=== PATIENT | female | born 1955 | race Caucasian/White ===

== ENCOUNTER 2022-12-25 21:41 | Inpatient (IN) | payer MEDICARE, OTHER, SELFPAY ==
[2022-12-25] MEDS ORDERED: Ondansetron PF 4 MG/2 ML Vial IVP PRN (22:50)
[2022-12-25] MEDS ORDERED: Acetaminophen 650 MG Suppository PR PRN (22:50)
[2022-12-25] MEDS ORDERED: Acetaminophen 325 MG TAB PO PRN (22:50)
[2022-12-25] MEDS ORDERED: Ondansetron ODT 4 MG TAB PO PRN (22:50)
[2022-12-26 00:09] LABS: Troponin I 1.402 ng/mL (< 0.028)
[2022-12-26] MEDS ORDERED: Morphine 4 MG/ML VIAL SLOW IVP PRN (02:17)
[2022-12-26] MEDS: Nitroglycerin 0.4 MG TAB (25 Tab Bottle) SL PRN ×2 (02:39→02:55)
[2022-12-26 04:53] LABS: #Basophils 0.1 thou/uL (0.0-0.2); #Monocytes 0.5 thou/uL (0.11-0.59); #Neutrophils 6.9 thou/uL (1.40-6.50); %Basophils 1.1 % (0.0-1.0); %Eosinophils 0.1 % (0.0-10.0); %Lymphocytes 18.6 % (21.0-51.0); %Monocytes 5.6 % (0.0-10.0); %Neutrophils 74.4 % (42.0-75.0); Hematocrit 44.5 % (36.0-47.0); Hemoglobin 14.2 g/dL (12.0-16.0); Mean Corpuscular HGB CONC 31.9 g/dL (32.0-36.0); Mean Corpuscular Hemoglobin 29.2 pg (27.0-31.0); Mean Corpuscular Volume 91.6 fl (78.0-98.0); Mean Platelet Volume 11.5 fL (7.4-10.4); Platelet Count 187 10x3/uL (130-400); RBC Distribution Width 12.7 % (11.5-14.5); Red Blood Cell (RBC) Count 4.86 mill/uL (4.20-5.40); White Blood Cell (WBC) Count 9.3 10x3/uL (4.8-10.8)
[2022-12-26 05:03] LABS: Hemoglobin A1c 5.8 % (4.0-6.0)
[2022-12-26 05:17] LABS: Anion Gap 13 mmol/L (10-20); BUN (Urea Nitrogen) 6 mg/dL (9.8-20.1); Calc. Creatinine Clearance 82 mL/min (70-130); Calcium 8.5 mg/dL (7.8-10.44); Carbon Dioxide 23 mmol/L (23-31); Cardiac Risk 4.1 (Less than 4.5); Chloride 102 mmol/L (98-107); Cholesterol 143 mg/dl (< 200 Desired); Estimated GFR 98; Glucose 122 mg/dL (80-115); HDL Cholesterol 35 mg/dL (>60 Neg Risk); LDL Cholesterol, Calculated 88 mg/dL; Potassium 4.4 mmol/L (3.5-5.1); Sodium 134 mmol/L (136-145); Triglycerides 102 mg/dL (Less than 150)
[2022-12-26] MEDS ORDERED: FLU VACC QS2023(65UP)/MF59C/PF 60 MCG/0.5 ML SYRINGE IM ONE (09:00)
[2022-12-26] MEDS: Aspirin Chewable 81 MG TAB PO SCH (09:56)
[2022-12-26] MEDS ORDERED: Ipratropium/Albuterol 3 ML NEB NEB PRN (11:11)
[2022-12-26] MEDS ORDERED: Iopamidol 370 76% 100 ML VIAL ONE (12:58)
[2022-12-26] MEDS ORDERED: Communication Order-Pharmacy FS SCH (14:45)
[2022-12-26] MEDS: Sodium Chloride 0.9% 1,000 ML IV SCH ×2 (15:19→23:45)
[2022-12-26] MEDS: Atorvastatin Calcium 40 MG TAB PO SCH (20:09)
[2022-12-27] MEDS: Sodium Chloride 0.9% 1,000 ML IV SCH ×2 (01:09→05:38)
[2022-12-27 05:13] LABS: Anion Gap 13 mmol/L (10-20); BUN (Urea Nitrogen) 7 mg/dL (9.8-20.1); Calc. Creatinine Clearance 96 mL/min (70-130); Calcium 9.1 mg/dL (7.8-10.44); Carbon Dioxide 26 mmol/L (23-31); Chloride 103 mmol/L (98-107); Estimated GFR 102; Glucose 94 mg/dL (80-115); Potassium 3.9 mmol/L (3.5-5.1); Sodium 138 mmol/L (136-145)
[2022-12-27] MEDS ORDERED: Lidocaine 1% (PF) 30 ML VIAL ONE ×2 (06:41→10:40)
[2022-12-27] MEDS ORDERED: Heparin 10,000 UNITS/ 10 ML VIAL ONE ×2 (06:41→10:40)
[2022-12-27] MEDS: Aspirin Chewable 81 MG TAB PO SCH (07:06)
[2022-12-27] MEDS ORDERED: Adenosine 6 MG/2 ML VIAL ONE (10:40)
[2022-12-27] MEDS ORDERED: Iopamidol 370 76% 100 ML VIAL ONE (10:41)
[2022-12-27] MEDS ORDERED: Nitroglycerin 50 MG/250 ML BOT 0 ML ONE (10:41)
[2022-12-27] MEDS ORDERED: fentaNYL 50 mcg/mL 1 mL Vial ONE (11:57)
[2022-12-27] MEDS ORDERED: Midazolam HCl 2 mg/2 ml Vial ONE (11:57)
[2022-12-27] MEDS ORDERED: hydrALAZINE 20 MG/ML VIAL ONE (12:18)
[2022-12-27] MEDS ORDERED: Acetaminophen/Codeine 30-300mg Tablet PO PRN (14:24)
[2022-12-27] MEDS ORDERED: Sodium Chloride 0.9% 200 ML IV PRN (14:24)
[2022-12-27] MEDS ORDERED: Sodium Chloride 0.9% 500 ML IV SCH (14:30)
[2022-12-27] MEDS ORDERED: [UNRECOGNIZED DRUG - OTHER] FS SCH (17:44)
[2022-12-27] MEDS ORDERED: Guaifenesin DM 100-10/5 ML UDCUP PO PRN (17:50)
[2022-12-27] MEDS: Atorvastatin Calcium 40 MG TAB PO SCH (20:16)
[2022-12-28] MEDS: Losartan 25 MG TAB PO SCH (08:28)
[2022-12-28] MEDS: Aspirin Chewable 81 MG TAB PO SCH (08:30)
[2022-12-28] MEDS: Atorvastatin Calcium 40 MG TAB PO SCH (21:29)
[2022-12-29] MEDS: Losartan 25 MG TAB PO SCH (08:50)
[2022-12-29] MEDS: Aspirin Chewable 81 MG TAB PO SCH (08:53)
[2022-12-29] MEDS: Atorvastatin Calcium 40 MG TAB PO SCH (20:50)
[2022-12-30] MEDS: Losartan 25 MG TAB PO SCH (05:04)
[2022-12-30] MEDS ORDERED: Albumin 5% 500 ML ONE (06:17)
[2022-12-30] MEDS ORDERED: Heparin 10,000 UNITS/1 ML VIAL 30,000 UNITS in Sodium Chloride 0.9% 1,000 ML FS SCH (06:45)
[2022-12-30] MEDS ORDERED: Lidocaine 2% PF 5 ML VIAL ONE (06:50)
[2022-12-30] MEDS ORDERED: Vecuronium 10 MG VIAL ONE ×2 (06:50→07:42)
[2022-12-30] MEDS ORDERED: fentaNYL PF 100 MCG/2 ML SYRINGE ONE (06:51)
[2022-12-30] MEDS ORDERED: Midazolam HCl 2 mg/2 ml Vial ONE (06:51)
[2022-12-30] MEDS ORDERED: PROPOFOL 20 ML ONE (06:51)
[2022-12-30] MEDS ORDERED: PHENYLEPHRINE-NS 100 MCG/ML 10 ML SYRINGE ONE (06:54)
[2022-12-30] MEDS ORDERED: Dexmedetomidine 200 MCG/2 ML VIAL ONE (06:58)
[2022-12-30] MEDS ORDERED: Ondansetron ODT 4 MG TAB ONE (07:15)
[2022-12-30] MEDS ORDERED: Heparin 5,000 UNITS/ML VIAL ONE ×2 (07:15→07:42)
[2022-12-30] MEDS ORDERED: CEFAZOLIN 2 GM VIAL ONE (07:24)
[2022-12-30] MEDS ORDERED: Sodium Chloride 0.9% 100 ML ONE (07:25)
[2022-12-30] MEDS ORDERED: Mannitol 12.5 GM/50 ML ONE (07:42)
[2022-12-30] MEDS ORDERED: Potassium Chloride 60 MEQ/30 ML VIAL ONE (07:42)
[2022-12-30] MEDS ORDERED: Vancomycin 1 GM VIAL ONE (07:42)
[2022-12-30] MEDS ORDERED: NEOSTIGMINE 3 MG/3 ML SYR 3 MG/3 ML SYRINGE ONE (07:42)
[2022-12-30] MEDS ORDERED: PROPOFOL 200 MG/20 ML VIAL ONE (07:42)
[2022-12-30] MEDS ORDERED: Lidocaine 2% PF 100 mg/5 ml Syringe ONE (07:42)
[2022-12-30] MEDS ORDERED: Norepinephrine 4 MG/4 ML VIAL ONE (07:42)
[2022-12-30] MEDS ORDERED: Protamine Sulfate 250 MG/25 ML VIAL ONE (07:42)
[2022-12-30] MEDS ORDERED: Calcium Chloride 1 GM/10 ML Abboject SYRINGE ONE (07:42)
[2022-12-30] MEDS ORDERED: Thrombin 5000 UNITS/5 ML VIAL ONE (07:42)
[2022-12-30] MEDS ORDERED: Papaverine 60 MG/2 ML VIAL ONE (07:42)
[2022-12-30] MEDS ORDERED: Lidocaine 1% PF 5 ML VIAL ONE (07:42)
[2022-12-30] MEDS ORDERED: Aminocaproic Acid 5 GM/20 ML VIAL ONE (07:42)
[2022-12-30] MEDS ORDERED: Sodium Bicarb 50 MEQ/50 ML VIAL ONE (07:42)
[2022-12-30] MEDS ORDERED: Glycopyrrolate 0.2 MG/ML 5 ML SYRINGE ONE (07:42)
[2022-12-30] MEDS ORDERED: Ondansetron PF 4 MG/2 ML Vial ONE ×2 (07:42→10:31)
[2022-12-30] MEDS ORDERED: Esmolol 100 MG/10 ML VIAL ONE (07:42)
[2022-12-30] MEDS ORDERED: Dexamethasone 20 MG/5 ML VIAL ONE (07:42)
[2022-12-30] MEDS ORDERED: Heparin 30,000 units/30 ml VIAL ONE (07:42)
[2022-12-30] MEDS ORDERED: Magnesium 5 GM/10 ML VIAL ONE (07:42)
[2022-12-30] MEDS ORDERED: Cardioplegic Soln 1,000 ML BAG ONE (07:42)
[2022-12-30] MEDS ORDERED: Milrinone 10 MG/10 ML VIAL ONE (08:12)
[2022-12-30] MEDS ORDERED: Hetastarch 6% 500 ML 500 ML IVPB PRN (10:54)
[2022-12-30] MEDS ORDERED: Ondansetron PF 4 MG/2 ML Vial IVP PRN (10:54)
[2022-12-30] MEDS ORDERED: hydrALAZINE 20 MG/ML VIAL SLOW IVP PRN (10:54)
[2022-12-30] MEDS ORDERED: Bisacodyl 5 MG TAB PO PRN (10:54)
[2022-12-30] MEDS ORDERED: NOREPINEPHRINE 8 MG/250 ML-D5W 250 ML IVPB PRN (10:54)
[2022-12-30] MEDS ORDERED: Nitroglycerin 50 MG/250 ML BOT 250 ML IVPB PRN (10:54)
[2022-12-30] MEDS ORDERED: Post-Op Insulin Drip Protocol IVPB ONE (10:54)
[2022-12-30] MEDS ORDERED: DOPamine 400 MG/D5W 250 ML 250 ML IVPB PRN (10:54)
[2022-12-30] MEDS ORDERED: fentaNYL 50 mcg/mL 1 mL Vial SLOW IVP PRN ×2 (10:54)
[2022-12-30] MEDS ORDERED: Mag-Al 1200 mg/1200 mg/30 ML UDCUP PO PRN (10:54)
[2022-12-30] MEDS ORDERED: Potassium Chloride 20 MEQ/100 ML PREMIX BAG IVPB PRN (10:54)
[2022-12-30] MEDS ORDERED: Bisacodyl 10 MG SUPP PR PRN (10:54)
[2022-12-30] MEDS ORDERED: Ipratropium/Albuterol 3 ML NEB NEB PRN (10:54)
[2022-12-30] MEDS ORDERED: Morphine 2 MG/ML VIAL SLOW IVP PRN (10:54)
[2022-12-30] MEDS ORDERED: niCARdipine 25 MG in Sodium Chloride 0.9% 250 ML 250 ML IVPB PRN (10:54)
[2022-12-30] MEDS ORDERED: Guaifenesin DM 100-10/5 ML UDCUP PO PRN (10:54)
[2022-12-30] MEDS ORDERED: Ipratropium/Albuterol 3 ML NEB ONE (11:09)
[2022-12-30] MEDS ORDERED: fentaNYL 50 mcg/mL 1 mL Vial ONE (11:14)
[2022-12-30] MEDS ORDERED: Dextrose 5% in Water 1,000 ML IV PRN (11:15)
[2022-12-30] MEDS ORDERED: Dextrose 50% Abboject 50 ML SYRINGE SLOW IVP PRN (11:15)
[2022-12-30] MEDS ORDERED: HUMULIN R 100 UNITS in Sodium Chloride 0.9% 100 ML IVPB SCH (11:15)
[2022-12-30] MEDS ORDERED: Glucagon 1 MG/ML KIT SC PRN (11:15)
[2022-12-30 11:30] LABS: #Basophils 0.2 thou/uL (0.0-0.2); #Eosinphils 0.2 thou/uL (0.0-0.7); #Neutrophils 20.8 thou/uL (1.40-6.50); %Basophils 0.7 % (0.0-1.0); %Eosinophils 0.9 % (0.0-10.0); %Monocytes 4.1 % (0.0-10.0); %Neutrophils 84.6 % (42.0-75.0); Hematocrit 39.7 % (36.0-47.0); Hemoglobin 12.9 g/dL (12.0-16.0); Mean Corpuscular HGB CONC 32.5 g/dL (32.0-36.0); Mean Corpuscular Hemoglobin 30.1 pg (27.0-31.0); Mean Corpuscular Volume 92.8 fl (78.0-98.0); Mean Platelet Volume 10.9 fL (7.4-10.4); Platelet Count 187 10x3/uL (130-400); RBC Distribution Width 12.7 % (11.5-14.5); Red Blood Cell (RBC) Count 4.28 mill/uL (4.20-5.40); White Blood Cell (WBC) Count 24.6 10x3/uL (4.8-10.8)
[2022-12-30] MEDS: Lactated Ringer's 1,000 ML IV SCH (11:30)
[2022-12-30 11:55] LABS: Anion Gap 12 mmol/L (10-20); BUN (Urea Nitrogen) 11 mg/dL (9.8-20.1); Calc. Creatinine Clearance 87 mL/min (70-130); Calcium 7.7 mg/dL (7.8-10.44); Carbon Dioxide 24 mmol/L (23-31); Chloride 110 mmol/L (98-107); Estimated GFR 100; Glucose 151 mg/dL (80-115); Sodium 142 mmol/L (136-145)
[2022-12-30] MEDS: Insulin Regular 300 UNITS/3 ML VIAL SC PRN ×3 (12:04→20:42)
[2022-12-30 12:17] LABS: INR-International Normal Ratio 1.4; Prothrombin Time 17.9 sec (12.0-14.7)
[2022-12-30] MEDS: Ipratropium/Albuterol 3 ML NEB NEB SCH ×3 (13:43→23:52)
[2022-12-30] MEDS: CEFAZOLIN 2 GM in Sodium Chloride 0.9% 100 ML IVPB SCH (14:50)
[2022-12-30] MEDS: HYDROcodone/Acetaminophen 5/325 mg Tablet PO PRN ×2 (15:31→20:18)
[2022-12-30 16:57] LABS: Hematocrit 33.1 % (36.0-47.0); Hemoglobin 10.8 g/dL (12.0-16.0)
[2022-12-30 17:25] LABS: Potassium 4.1 mmol/L (3.5-5.1)
[2022-12-30] MEDS: Famotidine/PF 20 mg/2ml Vial SLOW IVP SCH (20:17)
[2022-12-30] MEDS: Atorvastatin Calcium 20 MG TAB PO SCH (20:18)
[2022-12-31] MEDS ORDERED: Sodium Chloride 0.9% 100 ML ONE (00:03)
[2022-12-31] MEDS: CEFAZOLIN 2 GM in Sodium Chloride 0.9% 100 ML IVPB SCH ×2 (00:08→06:10)
[2022-12-31] MEDS: Lactated Ringer's 1,000 ML IV SCH ×2 (00:17→09:40)
[2022-12-31] MEDS: Insulin Regular 300 UNITS/3 ML VIAL SC PRN ×3 (00:20→12:33)
[2022-12-31] MEDS: HYDROcodone/Acetaminophen 5/325 mg Tablet PO PRN ×2 (03:13→12:29)
[2022-12-31] MEDS: Acetaminophen 325 MG TAB PO PRN (04:46)
[2022-12-31 05:05] LABS: #Monocytes 1.6 thou/uL (0.11-0.59); #Neutrophils 12.4 thou/uL (1.40-6.50); %Basophils 0.2 % (0.0-1.0); %Lymphocytes 12.9 % (21.0-51.0); %Monocytes 9.7 % (0.0-10.0); %Neutrophils 76.8 % (42.0-75.0); Hematocrit 30.9 % (36.0-47.0); Hemoglobin 9.9 g/dL (12.0-16.0); Mean Corpuscular Hemoglobin 29.6 pg (27.0-31.0); Mean Corpuscular Volume 92.5 fl (78.0-98.0); Mean Platelet Volume 11.1 fL (7.4-10.4); Platelet Count 187 10x3/uL (130-400); Red Blood Cell (RBC) Count 3.34 mill/uL (4.20-5.40); White Blood Cell (WBC) Count 16.2 10x3/uL (4.8-10.8)
[2022-12-31 05:29] LABS: Anion Gap 11 mmol/L (10-20); BUN (Urea Nitrogen) 10 mg/dL (9.8-20.1); Calc. Creatinine Clearance 102 mL/min (70-130); Calcium 8.1 mg/dL (7.8-10.44); Carbon Dioxide 25 mmol/L (23-31); Chloride 106 mmol/L (98-107); Estimated GFR 99; Glucose 128 mg/dL (80-115); Potassium 4.1 mmol/L (3.5-5.1); Sodium 138 mmol/L (136-145)
[2022-12-31] MEDS: Ipratropium/Albuterol 3 ML NEB NEB SCH ×3 (07:57→18:26)
[2022-12-31] MEDS: Magnesium 2 GM/50 ML(in water) 2 GM in Premix 1 BAG IVPB SCH (08:47)
[2022-12-31] MEDS: Aspirin Chewable 81 MG TAB PO SCH (08:47)
[2022-12-31] MEDS: Famotidine/PF 20 mg/2ml Vial SLOW IVP SCH ×2 (08:48→21:46)
[2022-12-31] MEDS ORDERED: Insulin Glargine 30 UNITS/0.3 ML VIAL SC PRN (11:05)
[2022-12-31 15:26] LABS: Hematocrit 28.6 % (36.0-47.0); Hemoglobin 9.5 g/dL (12.0-16.0); Platelet Count 140 10x3/uL (130-400)
[2022-12-31] MEDS: Ketorolac Tromethamine 30 MG/ML VIAL IVP SCH ×2 (16:10→23:59)
[2022-12-31] MEDS: Atorvastatin Calcium 20 MG TAB PO SCH (21:46)
[2023-01-01] MEDS: Ipratropium/Albuterol 3 ML NEB NEB SCH ×4 (00:14→18:07)
[2023-01-01] MEDS: Amiodarone 450 MG, Admixture Fee 1 EACH in Dextrose 5% in Water 250 ML IVPB SCH ×2 (04:15→10:55)
[2023-01-01 05:03] LABS: #Monocytes 0.9 thou/uL (0.11-0.59); %Basophils 0.4 % (0.0-1.0); %Eosinophils 0.1 % (0.0-10.0); %Lymphocytes 22.8 % (21.0-51.0); %Monocytes 9.6 % (0.0-10.0); %Neutrophils 66.4 % (42.0-75.0); Hematocrit 28.2 % (36.0-47.0); Hemoglobin 9.2 g/dL (12.0-16.0); Mean Corpuscular HGB CONC 32.6 g/dL (32.0-36.0); Mean Corpuscular Hemoglobin 29.6 pg (27.0-31.0); Mean Corpuscular Volume 90.7 fl (78.0-98.0); Mean Platelet Volume 11.3 fL (7.4-10.4); Platelet Count 143 10x3/uL (130-400); RBC Distribution Width 13.1 % (11.5-14.5); Red Blood Cell (RBC) Count 3.11 mill/uL (4.20-5.40)
[2023-01-01 05:24] LABS: Anion Gap 11 mmol/L (10-20); BUN (Urea Nitrogen) 10 mg/dL (9.8-20.1); Calc. Creatinine Clearance 102 mL/min (70-130); Calcium 8.3 mg/dL (7.8-10.44); Carbon Dioxide 25 mmol/L (23-31); Chloride 105 mmol/L (98-107); Estimated GFR 100; Glucose 104 mg/dL (80-115); Potassium 4.2 mmol/L (3.5-5.1); Sodium 137 mmol/L (136-145)
[2023-01-01] MEDS: Ketorolac Tromethamine 30 MG/ML VIAL IVP SCH ×2 (08:09→16:06)
[2023-01-01] MEDS: Magnesium 2 GM/50 ML(in water) 2 GM in Premix 1 BAG IVPB SCH (08:09)
[2023-01-01] MEDS: Aspirin Chewable 81 MG TAB PO SCH (08:09)
[2023-01-01] MEDS: Famotidine/PF 20 mg/2ml Vial SLOW IVP SCH ×2 (08:09→20:06)
[2023-01-01] MEDS: Lactated Ringer's 1,000 ML IV SCH (08:20)
[2023-01-01] MEDS ORDERED: Furosemide 40 MG TAB PO SCH (17:30)
[2023-01-01] MEDS: Atorvastatin Calcium 20 MG TAB PO SCH (20:07)
[2023-01-02] MEDS: Ipratropium/Albuterol 3 ML NEB NEB SCH ×5 (00:08→23:00)
[2023-01-02] MEDS: HYDROcodone/Acetaminophen 5/325 mg Tablet PO PRN (01:07)
[2023-01-02] MEDS: Amiodarone 450 MG, Admixture Fee 1 EACH in Dextrose 5% in Water 250 ML IVPB SCH (01:07)
[2023-01-02] MEDS: Ketorolac Tromethamine 30 MG/ML VIAL IVP SCH ×4 (01:15→23:25)
[2023-01-02 04:28] LABS: #Basophils 0.1 thou/uL (0.0-0.2); #Eosinphils 0.1 thou/uL (0.0-0.7); #Monocytes 1.1 thou/uL (0.11-0.59); %Eosinophils 1.4 % (0.0-10.0); %Lymphocytes 23.5 % (21.0-51.0); %Monocytes 11.6 % (0.0-10.0); Hematocrit 29.7 % (36.0-47.0); Hemoglobin 9.6 g/dL (12.0-16.0); Mean Corpuscular HGB CONC 32.3 g/dL (32.0-36.0); Mean Corpuscular Hemoglobin 29.9 pg (27.0-31.0); Mean Corpuscular Volume 92.5 fl (78.0-98.0); Mean Platelet Volume 11.1 fL (7.4-10.4); Platelet Count 167 10x3/uL (130-400); RBC Distribution Width 13.1 % (11.5-14.5); Red Blood Cell (RBC) Count 3.21 mill/uL (4.20-5.40); White Blood Cell (WBC) Count 9.7 10x3/uL (4.8-10.8)
[2023-01-02 04:49] LABS: Anion Gap 12 mmol/L (10-20); BUN (Urea Nitrogen) 14 mg/dL (9.8-20.1); Calc. Creatinine Clearance 87 mL/min (70-130); Calcium 8.1 mg/dL (7.8-10.44); Carbon Dioxide 26 mmol/L (23-31); Chloride 104 mmol/L (98-107); Estimated GFR 96; Glucose 123 mg/dL (80-115); Sodium 138 mmol/L (136-145)
[2023-01-02 07:38] VITALS: BMI 26.5
[2023-01-02] MEDS: Furosemide 40 MG TAB PO SCH (08:43)
[2023-01-02] MEDS: Famotidine/PF 20 mg/2ml Vial SLOW IVP SCH (08:44)
[2023-01-02] MEDS: Amiodarone 200 MG TAB PO SCH ×2 (08:44→20:35)
[2023-01-02] MEDS: Aspirin Chewable 81 MG TAB PO SCH (08:44)
[2023-01-02] MEDS ORDERED: Milk Of Magnesia 30 ML UDCUP PO PRN (09:33)
[2023-01-02] MEDS ORDERED: Mineral Oil ENEMA PR PRN (09:33)
[2023-01-02] MEDS ORDERED: Bisacodyl 10 MG SUPP PR PRN (09:33)
[2023-01-02] MEDS ORDERED: Artificial Tear Sol 15 ML BOT EA EYE PRN (09:33)
[2023-01-02] MEDS ORDERED: Zolpidem Tartrate 5 MG TAB PO PRN (09:33)
[2023-01-02] MEDS ORDERED: Nitroglycerin 0.4 MG TAB (25 Tab Bottle) SL PRN (09:33)
[2023-01-02] MEDS ORDERED: Bisacodyl 5 MG TAB PO PRN (09:33)
[2023-01-02] MEDS ORDERED: diphenhydrAMINE 25 MG CAP PO PRN (09:33)
[2023-01-02] MEDS ORDERED: Mag-Al 1200 mg/1200 mg/30 ML UDCUP PO PRN (09:33)
[2023-01-02] MEDS: Atorvastatin Calcium 20 MG TAB PO SCH (20:35)
[2023-01-02] MEDS: Famotidine 20 MG TAB PO SCH (20:35)
[2023-01-03] MEDS: Ipratropium/Albuterol 3 ML NEB NEB SCH ×3 (06:45→21:46)
[2023-01-03] MEDS: Amiodarone 200 MG TAB PO SCH ×2 (09:21→21:32)
[2023-01-03] MEDS: Famotidine 20 MG TAB PO SCH ×2 (09:21→21:32)
[2023-01-03] MEDS: Aspirin Chewable 81 MG TAB PO SCH (09:22)
[2023-01-03] MEDS: Ketorolac Tromethamine 30 MG/ML VIAL IVP SCH ×2 (09:22→17:37)
[2023-01-03] MEDS: Furosemide 40 MG TAB PO SCH (09:22)
[2023-01-03] MEDS: Atorvastatin Calcium 20 MG TAB PO SCH (21:32)
[2023-01-04] MEDS: Ipratropium/Albuterol 3 ML NEB NEB SCH ×5 (01:05→22:33)
[2023-01-04] MEDS: Ketorolac Tromethamine 30 MG/ML VIAL IVP SCH ×3 (01:20→16:02)
[2023-01-04] MEDS: Aspirin Chewable 81 MG TAB PO SCH (08:26)
[2023-01-04] MEDS: Furosemide 40 MG TAB PO SCH (08:27)
[2023-01-04] MEDS: Famotidine 20 MG TAB PO SCH ×2 (08:27→21:14)
[2023-01-04] MEDS: Amiodarone 200 MG TAB PO SCH ×2 (08:27→21:14)
[2023-01-04] MEDS: Atorvastatin Calcium 20 MG TAB PO SCH (21:14)
[2023-01-04] MEDS: Guaifenesin DM 100-10/5 ML UDCUP PO PRN (21:15)
[2023-01-04] MEDS: Acetaminophen 325 MG TAB PO PRN (21:19)
[2023-01-05] MEDS: Ketorolac Tromethamine 30 MG/ML VIAL IVP SCH ×3 (02:21→15:17)
[2023-01-05 04:11] LABS: #Basophils 0.1 thou/uL (0.0-0.2); #Eosinphils 0.6 thou/uL (0.0-0.7); #Monocytes 0.9 thou/uL (0.11-0.59); #Neutrophils 5.4 thou/uL (1.40-6.50); %Basophils 0.9 % (0.0-1.0); %Eosinophils 6.6 % (0.0-10.0); %Lymphocytes 22.9 % (21.0-51.0); %Monocytes 10.1 % (0.0-10.0); %Neutrophils 59.1 % (42.0-75.0); Hemoglobin 10.3 g/dL (12.0-16.0); Mean Corpuscular HGB CONC 32.2 g/dL (32.0-36.0); Mean Corpuscular Hemoglobin 29.6 pg (27.0-31.0); Mean Platelet Volume 10.5 fL (7.4-10.4); Platelet Count 302 10x3/uL (130-400); RBC Distribution Width 13.2 % (11.5-14.5); Red Blood Cell (RBC) Count 3.48 mill/uL (4.20-5.40); White Blood Cell (WBC) Count 9.2 10x3/uL (4.8-10.8)
[2023-01-05 04:31] LABS: Anion Gap 12 mmol/L (10-20); BUN (Urea Nitrogen) 10 mg/dL (9.8-20.1); Calc. Creatinine Clearance 96 mL/min (70-130); Calcium 8.3 mg/dL (7.8-10.44); Carbon Dioxide 28 mmol/L (23-31); Chloride 105 mmol/L (98-107); Estimated GFR 100; Glucose 78 mg/dL (80-115); Potassium 3.4 mmol/L (3.5-5.1); Sodium 142 mmol/L (136-145)
[2023-01-05] MEDS: HYDROcodone/Acetaminophen 5/325 mg Tablet PO PRN ×2 (05:58→20:27)
[2023-01-05] MEDS: Ipratropium/Albuterol 3 ML NEB NEB SCH ×3 (08:07→19:02)
[2023-01-05] MEDS: Aspirin Chewable 81 MG TAB PO SCH (08:39)
[2023-01-05] MEDS: Furosemide 40 MG TAB PO SCH (08:39)
[2023-01-05] MEDS: Amiodarone 200 MG TAB PO SCH ×2 (08:40→20:28)
[2023-01-05] MEDS: Famotidine 20 MG TAB PO SCH ×2 (08:40→20:28)
[2023-01-05] MEDS ORDERED: Potassium Chloride 20 MEQ TAB PO SCH (13:00)
[2023-01-05] MEDS: Atorvastatin Calcium 20 MG TAB PO SCH (20:28)
[2023-01-05] MEDS: Guaifenesin DM 100-10/5 ML UDCUP PO PRN (20:28)
[2023-01-05] MEDS: Benzonatate 100 MG CAP PO PRN (23:53)
[2023-01-06] MEDS: Ipratropium/Albuterol 3 ML NEB NEB SCH ×4 (00:05→19:14)
[2023-01-06 05:47] LABS: #Basophils 0.1 thou/uL (0.0-0.2); #Eosinphils 0.8 thou/uL (0.0-0.7); #Monocytes 1.3 thou/uL (0.11-0.59); #Neutrophils 9.7 thou/uL (1.40-6.50); %Basophils 0.8 % (0.0-1.0); %Eosinophils 5.8 % (0.0-10.0); %Lymphocytes 16.4 % (21.0-51.0); %Monocytes 8.8 % (0.0-10.0); %Neutrophils 67.7 % (42.0-75.0); Hematocrit 35.6 % (36.0-47.0); Hemoglobin 11.2 g/dL (12.0-16.0); Mean Corpuscular HGB CONC 31.5 g/dL (32.0-36.0); Mean Corpuscular Hemoglobin 29.4 pg (27.0-31.0); Mean Corpuscular Volume 93.4 fl (78.0-98.0); Mean Platelet Volume 12.5 fL (7.4-10.4); Platelet Count 243 10x3/uL (130-400); Red Blood Cell (RBC) Count 3.81 mill/uL (4.20-5.40); White Blood Cell (WBC) Count 14.3 10x3/uL (4.8-10.8)
[2023-01-06 06:25] LABS: Anion Gap 12 mmol/L (10-20); BUN (Urea Nitrogen) 15 mg/dL (9.8-20.1); Calc. Creatinine Clearance 84 mL/min (70-130); Calcium 8.5 mg/dL (7.8-10.44); Carbon Dioxide 27 mmol/L (23-31); Chloride 104 mmol/L (98-107); Estimated GFR 97; Glucose 106 mg/dL (80-115); Sodium 139 mmol/L (136-145)
[2023-01-06] MEDS: HYDROcodone/Acetaminophen 5/325 mg Tablet PO PRN ×2 (08:15→21:09)
[2023-01-06] MEDS: Famotidine 20 MG TAB PO SCH ×2 (08:23→21:09)
[2023-01-06] MEDS: Furosemide 40 MG TAB PO SCH (09:26)
[2023-01-06] MEDS: Amiodarone 200 MG TAB PO SCH ×2 (09:26→21:09)
[2023-01-06] MEDS: Aspirin Chewable 81 MG TAB PO SCH (09:26)
[2023-01-06] MEDS: Losartan 25 MG TAB PO SCH (09:40)
[2023-01-06 14:28] LABS: Actual Bicarbonate (HCO3a) 24.4 mEq/L (22-28); Analyzer IN Cardio OR; Base Excess (BEa) -1.2 mEq/L (-2.0 to +3.0); Calcium, Ionized (arterial) 1.12 mmol/L (1.12-1.30); Carboxyhemoglobin (COHb) 0.9 gm% (0.0-3.0); Hematocrit-ABG 41 % (36.0-47.0); O2 Tension (PaO2), arterial 462.7 mmHg (> 80.0); Potassium - ABG Lab 3.38 mmol/L (3.70-5.30); pH, Arterial 7.362 (7.35-7.45)
[2023-01-06 14:29] LABS: Actual Bicarbonate (HCO3a) 23.8 mEq/L (22-28); Analyzer IN Cardio OR; Base Excess (BEa) -3.6 mEq/L (-2.0 to +3.0); CO2 Tension 52.5 mmHg (35.0-45.0); Calcium, Ionized (arterial) 1.14 mmol/L (1.12-1.30); Carboxyhemoglobin (COHb) 0.3 gm% (0.0-3.0); Hematocrit-ABG 40 % (36.0-47.0); Hemoglobin (Hb) 13.7 g/dL (12.0-16.0); O2 Tension (PaO2), arterial 496.4 mmHg (> 80.0); Potassium - ABG Lab 3.75 mmol/L (3.70-5.30); pH, Arterial 7.274 (7.35-7.45)
[2023-01-06 14:29] LABS: Analyzer IN Cardio OR; Base Excess (BEa) 0.8 mEq/L (-2.0 to +3.0); CO2 Tension 51.6 mmHg (35.0-45.0); Carboxyhemoglobin (COHb) 0.2 gm% (0.0-3.0); Hematocrit-ABG 27 % (36.0-47.0); Hemoglobin (Hb) 9.3 g/dL (12.0-16.0); O2 Tension (PaO2), arterial 398.4 mmHg (> 80.0); Potassium - ABG Lab 3.83 mmol/L (3.70-5.30); pH, Arterial 7.337 (7.35-7.45)
[2023-01-06 14:29] LABS: Actual Bicarbonate (HCO3a) 22.2 mEq/L (22-28); Analyzer IN Cardio OR; Base Excess (BEa) -0.5 mEq/L (-2.0 to +3.0); CO2 Tension 29.9 mmHg (35.0-45.0); Calcium, Ionized (arterial) 0.88 mmol/L (1.12-1.30); Carboxyhemoglobin (COHb) 0.3 gm% (0.0-3.0); Hematocrit-ABG 29 % (36.0-47.0); O2 Tension (PaO2), arterial 357.7 mmHg (> 80.0); Potassium - ABG Lab 3.86 mmol/L (3.70-5.30); pH, Arterial 7.489 (7.35-7.45)
[2023-01-06 14:29] LABS: Actual Bicarbonate (HCO3a) 24.3 mEq/L (22-28); Analyzer IN Cardio OR; Base Excess (BEa) -1.3 mEq/L (-2.0 to +3.0); CO2 Tension 44.5 mmHg (35.0-45.0); Calcium, Ionized (arterial) 1.12 mmol/L (1.12-1.30); Carboxyhemoglobin (COHb) 0.3 gm% (0.0-3.0); Hematocrit-ABG 29 % (36.0-47.0); O2 Tension (PaO2), arterial 313.9 mmHg (> 80.0); Potassium - ABG Lab 4.07 mmol/L (3.70-5.30); pH, Arterial 7.355 (7.35-7.45)
[2023-01-06 14:30] LABS: Puncture Site Arterial Line
[2023-01-06 14:30] LABS: Actual Bicarbonate (HCO3a) 22.7 mEq/L (22-28); Analyzer IN Cardio OR; CO2 Tension 59.9 mmHg (35.0-45.0); Calcium, Ionized (arterial) 1.09 mmol/L (1.12-1.30); Carboxyhemoglobin (COHb) 0.2 gm% (0.0-3.0); Hematocrit-ABG 36 % (36.0-47.0); Hemoglobin (Hb) 12.2 g/dL (12.0-16.0); O2 Tension (PaO2), arterial 210.9 mmHg (> 80.0); Potassium - ABG Lab 3.87 mmol/L (3.70-5.30)
[2023-01-06 14:31] LABS: Puncture Site Arterial Line
[2023-01-06 14:31] LABS: Puncture Site Arterial Line
[2023-01-06 14:31] LABS: Puncture Site Arterial Line
[2023-01-06 14:32] LABS: Puncture Site Arterial Line
[2023-01-06 14:34] LABS: Puncture Site Arterial Line; pH, Arterial 7.196 (7.35-7.45)
[2023-01-06] MEDS: Atorvastatin Calcium 20 MG TAB PO SCH (21:09)
[2023-01-06] MEDS: Benzonatate 100 MG CAP PO PRN (21:09)
[2023-01-07] MEDS: Ipratropium/Albuterol 3 ML NEB NEB SCH ×3 (00:43→12:40)
[2023-01-07 04:08] LABS: #Basophils 0.1 thou/uL (0.0-0.2); #Eosinphils 0.4 thou/uL (0.0-0.7); #Monocytes 1.2 thou/uL (0.11-0.59); %Basophils 0.6 % (0.0-1.0); %Eosinophils 2.5 % (0.0-10.0); %Lymphocytes 11.3 % (21.0-51.0); %Monocytes 7.3 % (0.0-10.0); %Neutrophils 77.6 % (42.0-75.0); Hematocrit 34.7 % (36.0-47.0); Hemoglobin 10.9 g/dL (12.0-16.0); Mean Corpuscular HGB CONC 31.4 g/dL (32.0-36.0); Mean Corpuscular Hemoglobin 29.1 pg (27.0-31.0); Mean Corpuscular Volume 92.8 fl (78.0-98.0); Mean Platelet Volume 10.1 fL (7.4-10.4); Red Blood Cell (RBC) Count 3.74 mill/uL (4.20-5.40); White Blood Cell (WBC) Count 16.8 10x3/uL (4.8-10.8)
[2023-01-07 04:32] LABS: Anion Gap 13 mmol/L (10-20); BUN (Urea Nitrogen) 12 mg/dL (9.8-20.1); Calc. Creatinine Clearance 86 mL/min (70-130); Calcium 8.3 mg/dL (7.8-10.44); Carbon Dioxide 28 mmol/L (23-31); Chloride 102 mmol/L (98-107); Estimated GFR 97; Glucose 100 mg/dL (80-115); Potassium 3.7 mmol/L (3.5-5.1); Sodium 139 mmol/L (136-145)
[2023-01-07 04:41] LABS: Platelet Count 363 10x3/uL (130-400)
[2023-01-07] MEDS: Guaifenesin DM 100-10/5 ML UDCUP PO PRN (05:05)
[2023-01-07] MEDS: Furosemide 40 MG TAB PO SCH (07:52)
[2023-01-07] MEDS: Aspirin Chewable 81 MG TAB PO SCH (07:54)
[2023-01-07] MEDS: Losartan 25 MG TAB PO SCH (07:54)
[2023-01-07] MEDS: Famotidine 20 MG TAB PO SCH (07:54)
[2023-01-07] MEDS: Amiodarone 200 MG TAB PO SCH (07:59)
[2023-01-07] MEDS ORDERED: Amoxicillin/Potassium Clav 500 MG TAB PO SCH (09:00)
[2023-01-07 11:36] LABS: Bacteria/HPF None Seen HPF (None Seen); Bilirubin Negative (Negative); Blood, Urine Negative (Negative); CAUTI Indications for Culture Dysuria,urgency,freq; Clarity Clear (Clear); Glucose, Urine (Dipstick) Normal (Negative); Ketone, Urine Negative (Negative); Leukocyte Negative Leu/uL (Negative); Nitrite Negative (Negative); Protein, Urine (Dipstick) Negative (Neg-Trace); RBC/HPF 0-3 HPF (0-3); Specific Gravity, Urine 1.006 (1.002-1.036); Squamous Epithelial 0-3 HPF (0-3); Urobilinogen Normal mg/dL (Less than 2); WBC/HPF 0-3 HPF (0-3)
[2023-01-07 11:37] LABS: Urine Culture Reflex No No
[2023-01-07 13:11] VITALS: BP 118/56; TEMP 98.5
[2023-01-12] MEDS ORDERED: Amiodarone 200 MG TAB PO SCH (09:00)
== END 2023-01-07 15:20 | disposition home or self-care (01) | DRG 234 ==
LOC: 2NO 22:04 → OBSVTOIN 12-26 08:28 → CCU 12-30 06:38 → 2NO 01-02 12:26
PROVIDERS: ADMIT Student in an Organized Health Care Education/Training Program; ATTEND Internal Medicine
PROC: 4A023N7 Measurement of Cardiac Sampling and Pressure, Left Heart, Percutaneous Approach (ICD-10-PCS; 2022-12-27)
PROC: B2111ZZ Fluoroscopy of Multiple Coronary Arteries using Low Osmolar Contrast (ICD-10-PCS; 2022-12-27)
PROC: B2151ZZ Fluoroscopy of Left Heart using Low Osmolar Contrast (ICD-10-PCS; 2022-12-27)
PROC: 02100Z9 Bypass Coronary Artery, One Artery from Left Internal Mammary, Open Approach (ICD-10-PCS; principal; 2022-12-30)
PROC: 021109W Bypass Coronary Artery, Two Arteries from Aorta with Autologous Venous Tissue, Open Approach (ICD-10-PCS; 2022-12-30)
PROC: 06BQ3ZZ Excision of Left Saphenous Vein, Percutaneous Approach (ICD-10-PCS; 2022-12-30)
PROC: 30233J1 Transfusion of Nonautologous Serum Albumin into Peripheral Vein, Percutaneous Approach (ICD-10-PCS; 2022-12-30)
PROC: 5A1221Z Performance of Cardiac Output, Continuous (ICD-10-PCS; 2022-12-30)
PROC: 02L70CK Occlusion of Left Atrial Appendage with Extraluminal Device, Open Approach (ICD-10-PCS; 2022-12-30)
PROC: 4A133R1 Monitoring of Arterial Saturation, Peripheral, Percutaneous Approach (ICD-10-PCS; 2022-12-30)
DX: I21.4 Non-ST elevation (NSTEMI) myocardial infarction (principal); F17.210 Nicotine dependence, cigarettes, uncomplicated; R91.1 Solitary pulmonary nodule; I25.10 Atherosclerotic heart disease of native coronary artery without angina pectoris; J43.2 Centrilobular emphysema; I48.91 Unspecified atrial fibrillation; E87.6 Hypokalemia; R91.8 Other nonspecific abnormal finding of lung field
CPT/HCPCS: 36415; 36416; 36430; 71045; 71275; 80048; 80061; 81001; 82805; 82947; 83036; 84484; 85025; 85379; 85610; 85730; 86850; 86900; 86901; 90471; 90694; 93005; 93010; 93306; 93458; 93798; 94640; 94760; 96372; 96374; 97139; 99152; A4311; C1713; C1751; C1769; G0008; G0378; J0153; J0282; J0360; J1100; J1642; J1644; J1650; J1815; J1885; J2001; J2150; J2250; J2260; J2270; J2405; J2440; J2704; J2720; J3010; J3370; J3475; J3480; J3490; J7030; J7050; J7070; J7120; J7620; P9045; Q0162; Q9967; S0017; S0028

== ENCOUNTER 2023-01-22 09:50 | Outpatient (CLI) | payer MEDICARE | END 2023-01-22 09:51 | disposition home or self-care (01) | LOC: RAD 09:50 | PROVIDERS: ATTEND Internal Medicine Critical Care Medicine | DX: R06.00 Dyspnea, unspecified (principal); J90 Pleural effusion, not elsewhere classified; R91.8 Other nonspecific abnormal finding of lung field | CPT/HCPCS: 71046 ==

== ENCOUNTER → 2023-04-07 | Day surgery (SDC) | payer MEDICARE ==
[~2023-04-07] MED LIST: FLU VACC QS2023(65UP)/MF59C/PF 60 MCG/0.5 ML SYRINGE IM ONE; Lidocaine 1% w/Epinephrine 1:100K 20 ML VIAL ONE; Midazolam HCl 2 mg/2 ml Vial ONE; fentaNYL 50 mcg/mL 1 mL Vial ONE
[2023-04-07 08:40] LABS: #Basophils 0.1 thou/uL (0.0-0.2); #Eosinphils 0.3 thou/uL (0.0-0.7); #Monocytes 0.5 thou/uL (0.11-0.59); %Eosinophils 3.9 % (0.0-10.0); %Lymphocytes 39.1 % (21.0-51.0); %Monocytes 7.7 % (0.0-10.0); Hematocrit 49.4 % (36.0-47.0); Hemoglobin 15.6 g/dL (12.0-16.0); Mean Corpuscular HGB CONC 31.6 g/dL (32.0-36.0); Mean Corpuscular Hemoglobin 28.2 pg (27.0-31.0); Mean Corpuscular Volume 89.3 fl (78.0-98.0); Mean Platelet Volume 9.8 fL (7.4-10.4); Platelet Count 249 10x3/uL (130-400); RBC Distribution Width 14.1 % (11.5-14.5); Red Blood Cell (RBC) Count 5.53 mill/uL (4.20-5.40); White Blood Cell (WBC) Count 6.5 10x3/uL (4.8-10.8)
[2023-04-07 08:53] LABS: INR-International Normal Ratio 0.9; Prothrombin Time 12.4 sec (12.0-14.7)
[2023-04-07 08:54] LABS: PTT 28.1 sec (22.9-36.1)
[2023-04-07 12:42] VITALS: BMI 24.8
[2023-04-07 13:13] VITALS: BP 164/96; TEMP 98.5
== END ==
LOC: CT 08:03
PROVIDERS: ATTEND Internal Medicine Critical Care Medicine
PROC: 0BBG3ZX Excision of Left Upper Lung Lobe, Percutaneous Approach, Diagnostic (ICD-10-PCS; principal; 2023-04-07)
DX: C34.12 Malignant neoplasm of upper lobe, left bronchus or lung (principal); R91.8 Other nonspecific abnormal finding of lung field; F41.9 Anxiety disorder, unspecified; I10 Essential (primary) hypertension; I48.91 Unspecified atrial fibrillation; I25.10 Atherosclerotic heart disease of native coronary artery without angina pectoris; Z90.710 Acquired absence of both cervix and uterus; Z96.641 Presence of right artificial hip joint; Z87.891 Personal history of nicotine dependence; Z88.5 Allergy status to narcotic agent; Z79.82 Long term (current) use of aspirin; Z79.899 Other long term (current) drug therapy
CPT/HCPCS: 32408; 71045; 77012; 85025; 85610; 85730; 88333; 88334; 90694; G0008; J3010; 88305; 88341; 88342; 90471; J2250

== ENCOUNTER 2024-12-02 14:26 | Outpatient (CLI) | payer MEDICARE ==
[2024-12-02] MEDS ORDERED: Iopamidol 370 76% 100 ML VIAL ONE (14:38)
[2024-12-02 15:03] LABS: Estimated GFR - POC 97.0
== END 2024-12-02 14:27 | disposition home or self-care (01) ==
LOC: CT 14:26
PROVIDERS: ATTEND Otolaryngology Plastic Surgery within the Head & Neck
DX: J35.8 Other chronic diseases of tonsils and adenoids (principal); R59.0 Localized enlarged lymph nodes
CPT/HCPCS: 36415; 70491; 82565 ×2; Q9967

== ENCOUNTER 2024-12-08 09:58 | Outpatient (CLI) | payer MEDICARE | END 2024-12-08 09:59 | disposition home or self-care (01) | LOC: RAD 09:58 | PROVIDERS: ATTEND Radiology Radiation Oncology | DX: R13.10 Dysphagia, unspecified (principal); C09.8 Malignant neoplasm of overlapping sites of tonsil | CPT/HCPCS: 36415; 74230; 80053; 80061 ==

== ENCOUNTER 2024-12-10 08:45 | Outpatient (CLI) | payer MEDICARE | END 2024-12-10 08:46 | LOC: PET 08:45 | PROVIDERS: ATTEND Radiology Radiation Oncology | DX: C09.8 Malignant neoplasm of overlapping sites of tonsil (principal); C77.4 Secondary and unspecified malignant neoplasm of inguinal and lower limb lymph nodes | CPT/HCPCS: 78815; A9552 ==